=== PATIENT | female | born 1980 | race African-American/Black ===

== ENCOUNTER 2018-05-09 09:31 | Emergency (ER) | payer MEDICAID ==
[~2018-05-09] VITALS: Ht 167.6 cm; Wt 91.0 kg
[2018-05-09] MEDS ORDERED: MORPHINE SULFATE 4 MG/ML CPJ (NOT FOR IM USE) IV STA (11:19)
[2018-05-09] MEDS ORDERED: ONDANSETRON HCL 4MG/2ML INJ IV STA (11:19)
[2018-05-09 11:30] LABS: BASOPHILS % 0.7 % (0.0-2.0); EOSINOPHILS % 0.7 % (0.0-5.0); HEMOGLOBIN. 11.4 g/dL (12.0-16.0); LYMPHOCYTES % 26.8 % (20.0-50.0); MEAN CORPUSCULAR HEMOGLOBIN 22.2 pg (28.0-32.0); MEAN CORPUSCULAR VOLUME 69.9 fL (81.0-99.0); MEAN PLATELET VOLUME 7.5 fl (7.4-10.4); MONOCYTES % 7.6 % (2.0-8.0); NEUTROPHILS % 64.2 % (40.0-76.0); PLATELET 283 x1000/uL (130-400); RED BLOOD CELL COUNT 5.15 mill/uL (4.2-5.4); RED CELL DISTRIBUTION WIDTH 20.8 % (11.6-14.6)
[2018-05-09 11:36] LABS: CHLORIDE 108 mEq/L (98-107)
[2018-05-09 11:38] LABS: PROTHROMBIN TIME 10.4 sec (9.1-11.1)
[2018-05-09 11:49] LABS: HCG SCREEN NEGATIVE
[2018-05-09 12:36] LABS: CLARITY URINE CLOUDY (CLEAR); COLOR URINE YELLOW (YELLOW); KETONES URINE 3+ (NEGATIVE); LEUKOCYTE ESTERASE URINE NEGATIVE (NEGATIVE); NITRITE URINE NEGATIVE (NEGATIVE); OCCULT BLOOD URINE NEGATIVE (NEGATIVE); PH URINE >=9.0 (4.5-8.0); PROTEIN URINE TRACE (NEGATIVE); SPECIFIC GRAVITY URINE 1.025 (1.005-1.030); UROBILINOGEN URINE 0.2 E.U./dL (0.2-1.0)
[2018-05-09 13:09] LABS: PLATELET ESTIMATE NORMAL
[2018-05-09] MEDS ORDERED: IOHEXOL-300 100 ML BOTTLE ONE (13:54)
[2018-05-09] MEDS ORDERED: MORPHINE SULFATE 4 MG/ML CPJ (NOT FOR IM USE) IV NR (14:43)
[2018-05-09 18:15] VITALS: BP 128/70
== END 2018-05-09 19:03 | disposition home or self-care (01) ==
LOC: ER 09:31
DX: R10.0 Acute abdomen (principal); R03.0 Elevated blood-pressure reading, without diagnosis of hypertension
CPT/HCPCS: 36415; 74177; 76700; 80053; 81003; 83690; 84703; 85025; 85610; 96374; 96375; 96376; 99284; J2270; J2405; Q9967

== ENCOUNTER 2018-05-10 08:51 | Emergency (ER) | payer MEDICAID ==
[~2018-05-10] VITALS: Ht 167.6 cm; Wt 91.0 kg
[2018-05-10 09:01] VITALS: BP 132/83
== END 2018-05-10 15:45 | disposition left against medical advice (07) ==
LOC: ER 09:06
DX: R10.10 Upper abdominal pain, unspecified (principal); Z53.21 Procedure and treatment not carried out due to patient leaving prior to being seen by health care provider
CPT/HCPCS: 81025

== ENCOUNTER 2018-05-12 12:25 | Inpatient (IN) | payer MEDICAID ==
[~2018-05-12] VITALS: Ht 160 cm; Wt 90.7 kg
[2018-05-12 12:57] LABS: CLARITY URINE CLOUDY (CLEAR); COLOR URINE DARK YELLOW (YELLOW); KETONES URINE 2+ (NEGATIVE); LEUKOCYTE ESTERASE URINE NEGATIVE (NEGATIVE); NITRITE URINE NEGATIVE (NEGATIVE); OCCULT BLOOD URINE NEGATIVE (NEGATIVE); PH URINE 5.5 (4.5-8.0); PROTEIN URINE TRACE (NEGATIVE); SPECIFIC GRAVITY URINE 1.037 (1.005-1.030); UROBILINOGEN URINE 0.2 E.U./dL (0.2-1.0)
[2018-05-12] MEDS ORDERED: ONDANSETRON HCL 4MG/2ML INJ IV STA (16:27)
[2018-05-12] MEDS ORDERED: MORPHINE SULFATE 4 MG/ML CPJ (NOT FOR IM USE) IV STA (16:27)
[2018-05-12 16:59] LABS: CHLORIDE 106 mEq/L (98-107)
[2018-05-12 17:01] LABS: BASOPHILS % 0.4 % (0.0-2.0); EOSINOPHILS % 1.6 % (0.0-5.0); HEMATOCRIT. 33.9 % (36.0-48.0); HEMOGLOBIN. 10.6 g/dL (12.0-16.0); LYMPHOCYTES % 30.2 % (20.0-50.0); MEAN CORPUSCULAR HEMOGLOBIN 22.2 pg (28.0-32.0); MEAN CORPUSCULAR VOLUME 70.8 fL (81.0-99.0); MEAN PLATELET VOLUME 7.5 fl (7.4-10.4); MONOCYTES % 9.7 % (2.0-8.0); NEUTROPHILS % 58.1 % (40.0-76.0); PLATELET 299 x1000/uL (130-400); RED BLOOD CELL COUNT 4.79 mill/uL (4.2-5.4); RED CELL DISTRIBUTION WIDTH 21.1 % (11.6-14.6)
[2018-05-12] MEDS ORDERED: CLONIDINE 0.1MG TABLET PO PRN (19:15)
[2018-05-12] MEDS ORDERED: ZOLPIDEM TARTRATE 5MG TABLET PO PRN (19:15)
[2018-05-12] MEDS ORDERED: KETOROLAC 30MG/ML VIAL IV PRN (19:15)
[2018-05-12] MEDS ORDERED: ONDANSETRON HCL 4MG/2ML INJ IV PRN (19:15)
[2018-05-12] MEDS ORDERED: DOCUSATE SODIUM 100MG CAPSULE PO PRN (19:15)
[2018-05-12] MEDS ORDERED: ACETAMINOPHEN 325MG TABLET PO PRN (19:15)
[2018-05-12] MEDS ORDERED: MAGNESIUM/ALUMINUM HYDROXIDE/SIMETHICONE 30ML UDC PO PRN (19:15)
[2018-05-12] MEDS ORDERED: IPRATROPIUM/ALBUTEROL 0.5-3(2.5)MG/3ML NEB INH PRN (19:15)
[2018-05-12 22:05] LABS: *AMPHETAMINES SCREEN URINE NEGATIVE (NEGATIVE); *BARBITURATES SCREEN URINE NEGATIVE (NEGATIVE); *BENZODIAZEPINES SCREEN URINE NEGATIVE (NEGATIVE); *COCAINE SCREEN URINE NEGATIVE (NEGATIVE)
[2018-05-12 22:06] LABS: METHADONE URINE SCREEN NEGATIVE (NEGATIVE); PHENCYCLIDINE URINE SCREEN NEGATIVE (NEGATIVE)
[2018-05-12 22:11] LABS: CANNABINOID URINE SCREEN PRESUMTIVE POSITIVE (NEGATIVE); OPIATES URINE SCREEN PRESUMTIVE POSITIVE (NEGATIVE)
[2018-05-13] VITALS (7 sets, daily range): BP systolic 114–128; BP diastolic 51–84
[2018-05-13 01:19] LABS: CREATINE KINASE 35 IU/L (26-192)
[2018-05-13 01:20] LABS: CREATINE KINASE MB FRACTION < 1.0 ng/mL (0.5-3.6)
[2018-05-13] MEDS: MORPHINE SULFATE 4 MG/ML CPJ (NOT FOR IM USE) IV PRN ×4 (03:50→20:31)
[2018-05-13] MEDS: SODIUM CHLORIDE 0.9% 1,000 ML IV SCH (03:51)
[2018-05-13] MEDS: ENOXAPARIN 30MG/0.3ML SYR SUBCUT SCH ×3 (03:58→20:30)
[2018-05-13] MEDS: HYDROCODONE/ACETAMINOPHEN 5/325MG TABLET PO PRN ×4 (04:33→23:18)
[2018-05-13 07:48] LABS: BASOPHILS % 0.5 % (0.0-2.0); EOSINOPHILS % 0.6 % (0.0-5.0); HEMATOCRIT. 30.8 % (36.0-48.0); HEMOGLOBIN. 9.7 g/dL (12.0-16.0); MEAN CORPUSCULAR HEMOGLOBIN 22.1 pg (28.0-32.0); MEAN CORPUSCULAR VOLUME 69.9 fL (81.0-99.0); MEAN PLATELET VOLUME 7.9 fl (7.4-10.4); MONOCYTES % 9.2 % (2.0-8.0); NEUTROPHILS % 59.7 % (40.0-76.0); PLATELET 257 x1000/uL (130-400); RED BLOOD CELL COUNT 4.41 mill/uL (4.2-5.4); RED CELL DISTRIBUTION WIDTH 21.5 % (11.6-14.6)
[2018-05-13 08:07] LABS: CHLORIDE 109 mEq/L (98-107)
[2018-05-13 08:28] LABS: LDL CHOLESTEROL 89 mg/dL (5-100)
[2018-05-13 08:30] LABS: CREATINE KINASE 33 IU/L (26-192)
[2018-05-13 08:31] LABS: HDL CHOLESTEROL 36 mg/dL (40-59)
[2018-05-13 08:34] LABS: CREATINE KINASE MB FRACTION < 1.0 ng/mL (0.5-3.6)
[2018-05-14] VITALS: BP 109/66
[2018-05-14 04:00] VITALS: BP 128/77
[2018-05-14] MEDS: MORPHINE SULFATE 4 MG/ML CPJ (NOT FOR IM USE) IV PRN ×2 (04:23→10:16)
[2018-05-14] MEDS: SODIUM CHLORIDE 0.9% 1,000 ML IV SCH (06:13)
[2018-05-14 08:00] VITALS: BP 131/81
[2018-05-14] MEDS: ENOXAPARIN 30MG/0.3ML SYR SUBCUT SCH (08:20)
[2018-05-14 12:00] VITALS: BP 127/75
[2018-05-14 16:00] VITALS: BP 124/88
[2018-05-14 18:37] VITALS: BP 124/88
== END 2018-05-14 20:05 | disposition home or self-care (01) ==
LOC: ER 12:25 → 6EST 18:32 → EDBEDREQ 18:54 → ENRESERV 21:33 → EDBEDREQ 21:53
PROVIDERS: ADMIT Internal Medicine; ATTEND Internal Medicine
DX: K80.00 Calculus of gallbladder with acute cholecystitis without obstruction (principal); E78.00 Pure hypercholesterolemia, unspecified
CPT/HCPCS: 36415; 76705; 78227; 80061; 80305; 82550; 82553; 83735; 84443; 84484; 93970; 99285; A9537; J1650; J1885; J2270; J2405

== ENCOUNTER 2018-07-03 17:02 | Emergency (ER) | payer MEDICAID ==
[~2018-07-03] VITALS: Ht 167.6 cm; Wt 75.0 kg
[2018-07-03 17:06] VITALS: BP 106/60
== END 2018-07-03 18:42 | disposition left against medical advice (07) ==
LOC: ER 17:02
DX: R07.9 Chest pain, unspecified (principal); Z53.21 Procedure and treatment not carried out due to patient leaving prior to being seen by health care provider

== ENCOUNTER 2021-07-03 12:20 | Emergency (ER) | payer MEDICAID, OTHER ==
[~2021-07-03] VITALS: Ht 167.6 cm; Wt 101.0 kg
[2021-07-03] MEDS ORDERED: KETOROLAC 60MG/2ML VIAL IM ONE (13:15)
[2021-07-03] MEDS ORDERED: NAPR-681 MT (14:22)
[2021-07-03 14:47] VITALS: BP 133/78
== END 2021-07-03 14:47 | disposition home or self-care (01) ==
LOC: ER 12:20
DX: M25.561 Pain in right knee (principal); E78.00 Pure hypercholesterolemia, unspecified; F17.210 Nicotine dependence, cigarettes, uncomplicated; Z98.890 Other specified postprocedural states
CPT/HCPCS: 73562; 96372; 99283; J1885

== ENCOUNTER 2022-12-26 12:07 | Emergency (ER) | payer OTHER ==
[~2022-12-26] VITALS: Ht 165.1 cm; Wt 96.6 kg
[~2022-12-26 12:07] MED LIST: NAPR-681 MT
[2022-12-26 12:16] VITALS: O2SAT 100
[2022-12-26] MEDS ORDERED: BACITRACIN ZINC OINT UDPKT TOP ONE (13:00)
[2022-12-26] MEDS ORDERED: LIDOCAINE HCL/PF 1% 10 MG/ML 5ML VIAL INFIL ONE (13:00)
[2022-12-26] MEDS ORDERED: CEPH500T MT (14:12)
[2022-12-26] MEDS ORDERED: SULF1TAB48 MT (14:12)
[2022-12-26 14:26] VITALS: BP 131/77; PULSE 72; RESP 18; TEMP 99
== END 2022-12-26 14:28 | disposition home or self-care (01) ==
LOC: ER 13:34
DX: L72.8 Other follicular cysts of the skin and subcutaneous tissue (principal); E78.00 Pure hypercholesterolemia, unspecified; Z90.89 Acquired absence of other organs; Z98.890 Other specified postprocedural states
CPT/HCPCS: 10060; 99283; J3490; Z7610 ×3